=== PATIENT | male | born 1955 | race Two or more races ===

== ENCOUNTER 2018-08-09 12:04 | Emergency (ER) | payer MEDICARE, MEDICAID ==
--- NOTE | 2018-08-09 12:28 | ED ---
Dizziness - HPI Summary HPI Summary: This pt is a 62 y/o male presenting to [facility] c/o dizziness since last night. Pt describes room spinning dizziness. He states this morning upon getting up he had dizziness and fell like falling down. Denies fall, syncope, or LOC. His dizziness is aggravated when standing up. Denies numbness, tingling, weakness, nausea, vomiting, chest pain. Pt denies recent cold symptoms, runny nose, cough , ear pain, sinus pain. Pt denies any hx of dizziness in the past. PMHx includes bariatric surgery, HTN. Denies tobacco use. - History Of Current Complaint Stated Complaint: DIZZINESS Time Seen by Provider: 08/09/18 12:14 Hx Obtained From: Patient Onset/Duration: Still Present Timing: Days - 1 Severity Currently: Moderate Character: Room Spinning, Dizzy Aggravating Factor(s): Exertion Alleviating Factor(s): Nothing Associated Signs And Symptoms: Negative: Nausea, Vomiting, Tinnitus, Chest Pain , SOB, Fever, Chills, Slurred Speech, Other: - weakness, tingling, numbness, recent cold symptoms, ear pain, sinus pain - Allergies/Home Medications Allergies/Adverse Reactions: Allergies Allergy/AdvReac Type Severity Reaction Status Date / Time No Known Allergies Allergy Verified 01/01/16 11:54 PMH/Surg Hx/FS Hx/Imm Hx Endocrine/Hematology History: Reports: Hx Diabetes Cardiovascular History: Reports: Hx Hypertension Respiratory History: Reports: Hx Sleep Apnea - current BiPAP user Sensory History: Reports: Hx Contacts or Glasses, Hx Hearing Aid Opthamlomology History: Reports: Hx Contacts or Glasses Neurological History: Reports: Hx Seizures - epilepsy - Surgical History Surgery Procedure, Year, and Place: Bariatric Surgery February 2013 at [facility] Infectious Disease History: No Infectious Disease History: Denies: Traveled Outside the in Last 30 Days - Family History Known Family History: Negative: Hypertension, Diabetes Family History: AAA - Social History Alcohol Use: Rare Substance Use Type: Reports: None Smoking Status (MU): Never Smoked Tobacco Review of Systems Negative: Fever, Chills Negative: Ear Ache, Nasal Discharge, Other - sinus pain, Negative: Shortness Of Breath, Cough Negative: Vomiting, Nausea Neurological: Other - POS: dizziness Negative: Weakness, Paresthesia, Numbness All Other Systems Reviewed And Are Negative: Yes Physical Exam - Summary Physical Exam Summary: VITAL SIGNS: Reviewed. GENERAL: Patient is a well-developed and nourished male who is lying comfortable in the stretcher. Patient is not in any acute respiratory distress. HEAD AND FACE: No signs of trauma. No ecchymosis, hematomas or skull depressions. No sinus tenderness. EYES: PERRLA, EOMI x 2, No injected conjunctiva, no nystagmus. EARS: Hearing grossly intact. Ear canals and tympanic membranes are within normal limits. MOUTH: Oropharynx within normal limits. NECK: Supple, trachea is midline, no adenopathy, no JVD, no carotid bruit, no c- spine tenderness, neck with full ROM. CHEST: Symmetric, no tenderness at palpation LUNGS: Clear to auscultation bilaterally. No wheezing or crackles. CVS: Regular rate and rhythm, S1 and S2 present, no murmurs or gallops appreciated. ABDOMEN: Soft, non-tender. No signs of distention. No rebound, no guarding, and no masses palpated. Bowel sounds are normal. EXTREMITIES: FROM in all major joints, no edema, no cyanosis or clubbing. NEURO: Alert and oriented x 3. No acute neurological deficits. Speech is normal and follows commands. SKIN: Dry and warm GCS: 15 Triage Information Reviewed: Yes Vital Signs On Initial Exam: Initial Vitals Temp Pulse Resp BP Pulse Ox 98.8 F 68 19 137/75 98 08/09/18 12:19 08/09/18 12:19 08/09/18 12:19 08/09/18 12:19 08/09/18 12:19 Vital Signs Reviewed: Yes Diagnostics - Vital Signs Vital Signs Temp Pulse Resp BP Pulse Ox 08/09/18 12:19 98.8 F 68 19 137/75 98 - Laboratory Result Diagrams: 08/09/18 12:21 08/09/18 12:21 Lab Statement: Any lab studies that have been ordered have been reviewed, and results considered in the medical decision making process. - Radiology Chest XR Xray Interpretation: No Acute Changes - IMPRESSION: Elevated lung volumes suggest potential obstructive lung disease. No acute cardiopulmonary process evident. Dr. Ramirez has reviewed this report. Radiology Interpretation Completed By: Radiologist - CT Brain CT CT Interpretation: No Acute Changes - IMPRESSION: Mild cerebral and moderate cerebellar involutional change similar to the prior exam. No acute intracranial process evident. Dr. Ramirez has reviewed this report. CT Interpretation Completed By: Radiologist - EKG 12:26 Cardiac Rate: Bradycardia - at 58 bpm EKG Rhythm: Sinus Bradycardia EKG Interpretation: No ST elevations. EKG Comparison: Other - better compared to prior on 05/04/13. National Institutes Of Health - NIH Scale Level of Consciousness: Alert/Keenly Responsive Ask Patient the Month and His/Her Age: Both Correct Ask Pt to Open/Close Eyes and Instructional Systems Design Consultant/Release Non-Paretic Hand: Both Correctly Best Gaze (Only Horizontal Eye Movement): Normal Visual Field Testing: No Visual Loss Facial Paresis-Pt to Smile & Close Eyes or Grimace Symmetry: Normal/Symmetrical Motor Function - Right Arm: No Drift-Holds 10 Seconds Motor Function - Left Arm: No Drift-Holds 10 Seconds Motor Function - Right Leg: No Drift-Holds 10 Seconds Motor Function - Left Leg: No Drift-Holds 10 Seconds Limb Ataxia-Must be out of Proportion to Weakness Present: Absent Sensory (Use Pinprick to Test Arms/Legs/Trunk/Face): Normal Best Language (Describe Picture, Name Items): No Aphasia Dysarthria (Read Several Words): Normal Extinction and Inattention: No Abnormality Total Score: 0 Dizzy Course/Dx - Course Assessment/Plan: This pt is a 62 y/o male presenting to [facility] c/o dizziness since last night. Pt describes room spinning dizziness. He states this morning upon getting up he had dizziness and fell like falling down. Denies fall, syncope, or LOC. His dizziness is aggravated when standing up. Denies numbness, tingling, weakness, nausea, vomiting, chest pain. Pt denies recent cold symptoms , runny nose, cough, ear pain, sinus pain. Pt denies any hx of dizziness in the past. PMHx includes bariatric surgery, HTN. Denies tobacco use. Blood work without any significant abnormality except for glucose of 112, lactic acid is 2.8, troponin is 0.00. Urinalysis is negative for UTI. Head CT impression: No acute intracranial pathology. Chest x-ray impression: No acute cardiopulmonary process evident. In the ED course the patient declined IV fluid but he took meclizine for the dizziness. After this medication was given the symptoms have improved. At this point the patient is asymptomatic. The patient is ambulating without an unsteady gait or ataxia. I discussed all the findings and test results with the patient. Patient was instructed to return to the emergency room immediately if any of the symptoms return or worsens. Plan of care was discussed with the patient, and he understands and agrees. All questions were answered at patient satisfaction. There were no further complaints or concerns. Lung exam before discharge: CTA B/L. Good air exchange. No wheezing or crackles heard. CVS: S1 and S2 present. No murmurs appreciated. Patient is alert and oriented x 3. Patient is hemodynamically stable. Patient will be discharged home with follow up PCP in the next 2-3 days. - Diagnoses Differential Diagnosis/HQI/PQRI: Benign Paroxysmal Positional Vertigo, CVA, Medication Reaction, Transient Ischemic Attack, Vasovagal Reaction Provider Diagnoses: Vertigo Discharge - Sign-Out/Discharge Documenting (check all that apply): Patient Departure - Discharge home - Discharge Plan Condition: Stable Disposition: HOME Prescriptions: Meclizine TAB* [Antivert 12.5 TAB*] 25 mg PO TID PRN #30 tab PRN Reason: Vertigo Patient Education Materials: Vertigo (ED) Referrals: Allan Melendez MD [Primary Care Provider] - Additional Instructions: FOLLOW UP WITH YOUR PRIMARY CARE PROVIDER WITHIN ONE WEEK FOR HIGH BLOOD PRESSURE NOTED TODAY. RETURN TO THE ED FOR ANY NEW OR WORSENING SYMPTOMS. - Attestation Statements Document Initiated by Scribe: Yes Documenting Scribe: Diana Carroll Provider For Whom Scribe is Documenting (Include Credential): Kye Ramirez MD Scribe Attestation: Diana Robert, scribed for Kye Ramirez MD on 08/09/18 at 1801.
[2018-08-09 12:36] LABS: ABS Basophils 0 10^3/ul (0-0.2); ABS Eosinophils 0 10^3/ul (0-0.6); ABS Lymphocytes 1.3 10^3/ul (1.0-4.8); ABS Monocytes 0.7 10^3/ul (0-0.8); ABS Nucleated RBC 0 10^3/ul; Eosinophil % 0.8 % (0-6); Hematocrit 47 % (42-52); Hemoglobin 15.8 g/dl (14.0-18.0); Lymphocyte % 21.4 % (25-47); Mean Corpuscular HGB Conc 34 g/dl (31-36); Mean Corpuscular Hemoglobin 31 pg (27-31); Mean Corpuscular Volume 92 fL (80-94); Mean Platelet Volume 8.3 um3 (7.4-10.4); Nucleated Red Blood Cells % 0.1; Platelet Count 148 10^3/ul (150-450); Red Blood Count 5.08 10^6/ul (4.00-5.40); Red Cell Distribution Width 13 % (10.5-15); White Blood Count 6.2 10^3/ul (3.5-10.8)
--- OUTSIDE RECORDS SUMMARY | 2018-08-09 12:40 | XMS REPORT | Continuity of Care Document ---
:1955 External Reference #:[id number] Author Name Angel Garcia, OD Address [address] [place] [address] Care Team Providers Name Role Phone Nora DUFF, Allan Zelaya Care Team Information Professional Sports Scout Unavailable Nora DUFF, Allan Zelaya Primary Care Physician Unavailable Payers Type Date Identification Numbers Payment Provider Subscriber Policy Number: [id number] Medicare [facility] Robb Bashir PayID: [id number] [address] [place] [address] Policy Number: [id number] [place] Robb Bashir PayID: [id number] [address] [place] [address] Advance Directives Description No Information Available Problems Description No Information Family History Date Family Member(s) Problem(s) Comments Father Unknown Mother due to Aneurysm () - At [facility] Social History Type Date Description Comments Sex Unknown ETOH Use Occasionally consumes alcohol Tobacco Use Start: Unknown Patient has never smoked Smoking Status Reviewed: 08/03/18 Patient has never smoked Allergies, Adverse Reactions, Alerts Description No Known Drug Allergies Medications Medication Date Status Form Strength Qnty SIG Indications Ordering Provider Latanoprost Active Solution 0.005% 2.500m 1 drops Angel 018 l both eyes Garcia, OD every night Ocusoft Lid Active Pads 30unit apply to Angel Scrub Plus 017 s outer Garcia, OD eyelids Qam OU Tranxene-T Active Tablets 7.5mg Unknown [address] 500mg Unknown 000 Flintstones Active Chewtabs 60mg Unknown Complete 000 Vitamin B12 Active Tablets Unknown 000 Potassium Active Tablets Unknown 000 Calcium + D Active Chewtabs Unknown [address] 20mg Unknown 000 Gas-X Active Chewtabs 80mg Unknown 000 Latanoprost Hx Solution 0.005% 7.5ml 1 drops Angel Torrez - both eyes Jose, OD every 018 night Immunizations Description No Information Available Vital Signs Date Vital Result Comment 02/23/2018 1:20pm Intraocular Pressure Right Eye 12 mmHg Intraocular Pressure Left Eye 12 mmHg 10/20/2017 3:06pm Intraocular Pressure Right Eye 14 mmHg Intraocular Pressure Left Eye 14 mmHg 06/20/2017 2:34pm Intraocular Pressure Right Eye 14 mmHg Intraocular Pressure Left Eye 12 mmHg 04/11/2017 11:18am Intraocular Pressure Right Eye 14 mmHg Intraocular Pressure Left Eye 14 mmHg 02/09/2017 1:14pm Intraocular Pressure Right Eye 15 mmHg Intraocular Pressure Left Eye 15 mmHg 12/29/2016 1:49pm Intraocular Pressure Right Eye 21 mmHg Intraocular Pressure Left Eye 19 mmHg 11/21/2016 11:34am Intraocular Pressure Right Eye 22 mmHg Intraocular Pressure Left Eye 21 mmHg 09/19/2016 11:33am Intraocular Pressure Right Eye 19 mmHg Intraocular Pressure Left Eye 19 mmHg Results Description No Information Available Procedures Date Code Description Status 02/23/2018 78849 Visual Field Exam Extended, Unilateral Or Bilateral Completed 02/23/2018 82779 Eye Exam Est Intermediate Completed 10/20/2017 76377 Fundus Photography W/Interpretation & Report Completed 10/20/2017 91121 Eye Exam Est Intermediate Completed 04/11/2017 65083 Eye Exam Est Intermediate Completed 02/09/2017 62059 Eye Exam Est Intermediate Completed 12/29/2016 58115 Visual Field Exam Extended, Unilateral Or Bilateral Completed 12/29/2016 33653 Eye Exam Est Intermediate Completed 11/21/2016 16777 Oct, Optic Nerve Completed 11/21/2016 50765 Eye Exam Est Intermediate Completed 09/19/2016 81363 Fundus Photography W/Interpretation & Report Completed 09/19/2016 63086 Ophthalmoscopy Initial Completed 09/19/2016 24494 Refraction Completed 09/19/2016 59940 Eye Exam New Comprehensive Completed Encounters Type Date Location Provider Dx Diagnosis Office Visit 06/20/2017 Main Office Angel Garcia, OD H40.1131 Primary open-angle 2:15p glaucoma, bilateral, mild stage Plan of Treatment 08/03/2018 - Angel Garcia, [id number] Primary open-angle glaucoma, bilateral, mild stageFollow up:4 mos full, sooner PRN
[2018-08-09 12:59] LABS: EGFR Non-African American 104.6 (>60)
--- NOTE | 2018-08-09 12:59 | RAD ---
INDICATION: Dizziness. Hypertension. COMPARISON: February 27, 2015 TECHNIQUE: Dual energy PA and routine lateral views of the chest were obtained. REPORT: Elevated lung volumes. Clear lungs and pleural spaces. Negative for pneumothorax. The heart, pulmonary vasculature, and mediastinal contours are unremarkable. Unremarkable osseous structures and soft tissue contours. IMPRESSION: #. Elevated lung volumes suggest potential obstructive lung disease. #. No acute cardiopulmonary process evident.
--- NOTE | 2018-08-09 13:03 | RAD ---
Indication: Dizziness. Comparison: September 13, 2011 Technique: Noncontrast CT vertex of skull through foramen magnum. Report: Mild prominence of the cerebral sulci and moderate prominence of the cerebellar fissures reflecting involutional change. Unremarkable ventricles and patent basal cisterns. Negative for berger matter white matter obscuration, intra or extra-axial hemorrhage, or mass effect. Unremarkable orbital contents as well as the calvarium and skull base. Clear visualized paranasal sinuses and mastoid air spaces. Unremarkable scalp. IMPRESSION: #. Mild cerebral and moderate cerebellar involutional change similar to the prior exam. #. No acute intracranial process evident.
[2018-08-09 13:25] LABS: Urine Appearance Clear; Urine Blood Negative (Negative); Urine Color Yellow; Urine Ketones Negative (Negative); Urine Protein Negative (Negative); Urine Specific Gravity 1.004 (1.010-1.030); Urine Urobilinogen Negative (Negative)
[2018-08-09] MEDS ORDERED: NS 0.9% 1000 ML* 1,000 ML IV ONE (13:50)
[2018-08-09] MEDS ORDERED: Meclizine TAB* 12.5 MG PO ONE (13:53)
[2018-08-09 14:37] VITALS: BP 125/73
== END 2018-08-09 14:36 | disposition home or self-care (01) ==
LOC: ED 12:04
DX: R42 Dizziness and giddiness (principal); I10 Essential (primary) hypertension; E11.9 Type 2 diabetes mellitus without complications; G47.30 Sleep apnea, unspecified; Z79.899 Other long term (current) drug therapy; R00.1 Bradycardia, unspecified
CPT/HCPCS: 36415; 70450; 71046; 80053; 80320; 81003; 82550; 83605; 83735; 83880; 84443; 84484; 85025; 86140; 93005; 99283; A9270-GY; G0480

== ENCOUNTER 2019-11-24 02:15 | Emergency (ER) | payer MEDICARE, MEDICAID ==
[2019-11-24] MEDS ORDERED: Ondansetron INJ* 2 MG/ML VIAL IV ONE ×2 (02:57→02:58)
[2019-11-24] MEDS ORDERED: NS 0.9% 1000 ML** 1,000 ML IV ONE (02:57)
--- NOTE | 2019-11-24 02:58 | ED ---
Influenza-Like Illness - HPI Summary HPI Summary: Patient is a 63 y/o M presenting to [facility] via EMS for fever, cough, fatigue, sore throat, nasal congestion, LITTLE, and chest pain. He states that Sx onset . Patient was evaluated at [facility] on 11/22/19, flu swab was obtained and patient was diagnosed with influenza. However, he claims that the provider was unable to tell him which strain he had. He also claims that he was instructed to come to ED if he felt his Sx worsened. He states that his Sx worsened this evening, which resulted in this visit. He denies N/V/D. No other sick contacts noted. Patient states that he has been taking a mixture of lemon juice, virgin olive oil, and honey for his sore throat. He has been taking ibuprofen for LITTLE with minimal relief in Sx. Patient was able to eat dinner and has been drinking Powerade. PMHx of epilepsy and sleep apnea. PSHx of mickie-en-y gastric bypass noted. FMHx of bipolar disorder in mother. He reports rare alcohol usage but denies tobacco and substance usage. Home medications and allergies are reviewed. - History of Current Complaint Chief Complaint: EDFluSymptoms Time Seen by Provider: 11/24/19 02:40 Hx Obtained From: Patient Onset/Duration: Lasting Days, Still Present Severity: Severe Associated Signs & Symptoms: Cough, Sore Throat, Nasal Congestion, Headache - Allergy/Home Medications Allergies/Adverse Reactions: Allergies Allergy/AdvReac Type Severity Reaction Status Date / Time No Known Allergies Allergy Verified 01/01/16 11:54 PMH/Surg Hx/FS Hx/Imm Hx Endocrine/Hematology History: Reports: Hx Diabetes Cardiovascular History: Reports: Hx Hypertension Respiratory History: Reports: Hx Sleep Apnea - current BiPAP user Sensory History: Reports: Hx Contacts or Glasses, Hx Hearing Aid Opthamlomology History: Reports: Hx Contacts or Glasses Neurological History: Reports: Hx Seizures - epilepsy - Surgical History Surgery Procedure, Year, and Place: Bariatric Surgery February 2013 at [facility] Infectious Disease History: No Infectious Disease History: Denies: Traveled Outside the [place] in Last 30 Days - Family History Known Family History: Positive: Other - bipolar disorder, mother Negative: Cardiac Disease, Hypertension, Diabetes Family History: AAA - Social History Alcohol Use: Rare Substance Use Type: Reports: None Smoking Status (MU): Never Smoked Tobacco - Additional Comments History Additional Comments: PMHx of epilepsy and sleep apnea PSHx of mickie-en-y gastric bypass FMHx of bipolar disorder Review of Systems - ROS Summary Review of Systems Summary: Home Medications Medication Instructions Recorded Confirmed Type Cholecalciferol (Vitamin D3) 400 unit PO Q7D 06/25/13 11/14/14 History [Vitamin D3] Clorazepate Dipotassium [Tranxene 0.5 tab PO BID 06/25/13 11/14/14 History T] Cyanocobalamin (Vitamin B-12) 1,000 mcg PO QAM 06/25/13 11/14/14 History [Vitamin B-12] Omeprazole 20 mg PO BEDTIME 06/25/13 11/14/14 History Pedi Multivit No.25/Folic Acid 1 chw PO DAILY 06/25/13 11/14/14 History [Flintstones Multivit Chew Tab] Simvastatin 40 mg PO BEDTIME 06/25/13 11/14/14 History Tamsulosin HCl 2 cap PO QAM 06/25/13 11/14/14 History Valproic Acid (As Sodium Salt) 250 mg PO BID 06/25/13 11/14/14 History [Depakene] Calcium Citrate-Vitamin D [Calcium 1 tab PO QID 09/24/13 11/14/14 History Citrate + D3 250-200 mg-Unit] Potassium Chloride [Klor-Con 10] 10 meq PO QAM 09/24/13 11/14/14 History Meclizine TAB* [Antivert 12.5 TAB*] 25 mg PO TID PRN #30 tab 08/09/18 Rx Positive: Fever, Fatigue Positive: Sore Throat, Nasal Discharge Positive: Chest Pain Positive: Cough Negative: Vomiting, Diarrhea, Nausea Positive: Headache All Other Systems Reviewed And Are Negative: Yes Physical Exam - Summary Physical Exam Summary: General: Well-developed, Well-nourished, Elderly male that is mildly ill- appearing. No acute distress. HEENT: Normocephalic, Atraumatic. Eyes: Conjuctiva normal, PERRL. Oropharynx: Clear, mucous membranes moist, (-) exudates. Neck: Soft, FROM, (-) lymphadenopathy, (-) thyromegaly, (-) JVD. Cardiovascular: Normal sinus rhythm, (-) murmur. Lungs: Clear to auscultation bilaterally (-) wheezes, (-) rales, (-) rhonchi. Abdomen: Soft, non-tender, non-distended, (-) organomegaly, normal bowel sounds. Back: (-) CVA tenderness Extremities: No edema. Skin: Warm, dry, (-) rash. Neuro: Alert and oriented x3, no focal deficits. Psychiatric: Odd affect noted. Triage Information Reviewed: Yes Vital Signs On Initial Exam: Initial Vitals Temp Pulse Resp BP Pulse Ox 100.3 F 105 20 160/86 97 11/24/19 02:22 11/24/19 02:22 11/24/19 02:22 11/24/19 02:22 11/24/19 02:22 Vital Signs Reviewed: Yes Procedures - Sedation Patient Received Moderate/Deep Sedation with Procedure: No Diagnostics - Vital Signs Vital Signs Temp Pulse Resp BP Pulse Ox 11/24/19 02:22 100.3 F 105 20 160/86 97 - Laboratory Result Diagrams: 11/24/19 03:13 11/24/19 03:13 Lab Statement: Any lab studies that have been ordered have been reviewed, and results considered in the medical decision making process. - Radiology CXR Radiology Interpretation Completed By: ED Physician Summary of Radiographic Findings: CXR shows no infiltrate, no pleural effusion, pending official report. Flu Symptom Course/Dx - Course Course Of Treatment: 63 year old male presents iwth two day history of flu-like symptoms. was seen at pcp and told he had the flu but wasn't started on any medicine. patient felt worse throught the evening so he presented by ambulance. fever, cough, sob, severe muscle aching. physical exam demonstrated mildly ill- appearing male. nonspecific otherwise. cxr negative., labs show negative for flu. no elevated wbc or lactic acid. patient received fluids and Toradol. discharged to home. plenty of fluids, ibuprofen and rest. Follow up with PCP, follow up [place] for any worsening symptoms. - Diagnoses Provider Diagnoses: Flu-like symptoms Discharge ED - Sign-Out/Discharge Documenting (check all that apply): Patient Departure - discharge - Discharge Plan Condition: Stable Disposition: HOME Patient Education Materials: Viral Syndrome (ED) Referrals: Allan Melendez MD [Primary Care Provider] - 3 Days Additional Instructions: PLEASE RETURN TO ED FOR ANY NEW OR WORSENING SYMPTOMS. PLEASE FOLLOW UP WITH YOUR PRIMARY CARE PHYSICIAN WITHIN THREE DAYS. - Billing Disposition and Condition Condition: STABLE Disposition: Home - Attestation Statements Document Initiated by Wilber: Yes Documenting Scribe: DORITA LEI Provider For Whom Wilber is Documenting (Include Credential): NATALIYA HOBBS MD Scribe Attestation: I, DORITA LEI, scribed for NATALIYA HOBBS MD on 11/24/19 at 0557. Scribe Documentation Reviewed: Yes Provider Attestation: The documentation as recorded by the DORITA henry accurately reflects the service I personally performed and the decisions made by me, NATALIYA HOBBS MD Status of Scribe Document: Viewed
[2019-11-24 03:18] LABS: ABS Eosinophils 0.1 10^3/ul (0-0.6); ABS Lymphocytes 0.9 10^3/ul (1.0-4.8); ABS Neutrophils 4.8 10^3/ul (1.5-7.7); Eosinophil % 1.3 %; Hematocrit 46 % (42-52); Hemoglobin 15.9 g/dL (14.0-18.0); Mean Corpuscular HGB Conc 34 g/dL (31-36); Mean Corpuscular Hemoglobin 32 pg (27-31); Mean Corpuscular Volume 92 fL (80-94); Mean Platelet Volume 7.7 fL (7.4-10.4); Nucleated Red Blood Cells % 0.1; Platelet Count 107 10^3/uL (150-450); Red Blood Count 5.02 10^6 /uL (4.18-5.48); Red Cell Distribution Width 14 % (10-15); White Blood Count 6.8 10^3/uL (3.5-10.8)
--- OUTSIDE RECORDS SUMMARY | 2019-11-24 03:32 | XMS REPORT | Continuity of Care Document ---
:1955 External Reference #:[id number] Author Name JANNA Tobias Address [address] [place] [address] Care Team Providers Name Role Phone Vinita Douglas - Wool Spotter Care Team Information [facility]Center Care Team Information H[facility] Community Liaison Glen Ríos MD - Cardiovascular Care Team Information Hosp[facility] Community Liaison [facility] - Care Team Information Hospice Community Liaison [phone] Wool Spotter Problems Active Problems Provider Date Low back pain Allan Melendez M.D. Onset: 03/07/2007 Seizure Allan Melendez M.D. Onset: 03/07/2007 Backache Allan Melendez M.D. Onset: 03/07/2007 Essential hypertension Allan Melendez M.D. Onset: 05/30/2007 Benign essential hypertension Allan Melendez M.D. Onset: 09/19/2007 Benign prostatic hypertrophy without Allan Melendez M.D. Onset: 12/24/2007 outflow obstruction Peripheral venous insufficiency Allan Melendez M.D. Onset: 08/13/2008 Sleep apnea Allan Melendez M.D. Onset: 01/30/2009 Edema Allan Melendez M.D. Onset: 02/13/2009 Anxiety state Allan Melendez M.D. Onset: 05/01/2009 Hyperlipidemia Allan Melendez M.D. Onset: 10/26/2009 Type 2 diabetes mellitus Allan Melendez M.D. Onset: 10/26/2009 Obesity Allan Melendez M.D. Onset: 06/08/2010 Vitamin D deficiency Allan Melendez M.D. Onset: 01/31/2011 Hallucinations Maxx Osborne M.D. Onset: 09/02/2011 Headache Allan Melendez M.D. Onset: 09/09/2011 Acute sinusitis Allan Melendez M.D. Onset: 09/09/2011 Arthralgia of the ankle and/or foot Allan Melendez M.D. Onset: 11/11/2011 Obstructive sleep apnea syndrome Allan Melendez M.D. Onset: 11/11/2011 Generalized abdominal pain Allan Melendez M.D. Onset: 02/20/2012 Adult health examination Allan Melendez M.D. Onset: 03/30/2012 Postsurgical Status Other Allan Melendez M.D. Onset: 04/23/2013 Malaise and fatigue Allan Melendez M.D. Onset: 09/10/2013 Neck pain Allan Melendez M.D. Onset: 03/27/2015 Thoracic back sprain Allan Melendez M.D. Onset: 03/27/2015 Neuralgia Allan Melendez M.D. Onset: 03/27/2015 Fecal Urgency Allan Melendez M.D. Onset: 05/19/2015 Generalized anxiety disorder Allan Melendez M.D. 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 Onset: 10/05/2015 Elongated styloid process syndrome Allan Melendez M.D. Onset: 01/12/2016 Liver function tests abnormal Allan Melendez M.D. Onset: 02/08/2016 Tinnitus of left ear Allan Melendez M.D. Onset: 12/09/2016 Impacted cerumen Allan Melendez M.D. Onset: 12/09/2016 Bronchitis Allan Melendez M.D. Onset: 01/06/2017 Contusion of face, scalp and neck, Allan Melendez M.D. Onset: 04/24/2017 excluding eye(s) Dizziness and giddiness Allan Melendez M.D. Onset: 04/24/2017 Abnormal glucose level Allan Melendez M.D. Onset: 04/24/2017 Glaucoma Allan Melendez M.D. Onset: 06/05/2018 Pain in left knee Allan Melendez M.D. Onset: 08/13/2019 Urgent desire for stool Dolores Edmonds NP Onset: 11/18/2019 Social History Type Date Description Comments Sex Unknown Tobacco Use Start: Unknown Nonsmoker Smoking Status Reviewed: 11/18/19 Nonsmoker ETOH Use Some Tobacco Use Start: Unknown Patient has never smoked Allergies, Adverse Reactions, Alerts Description No Known Drug Allergies Medications Active Medications SIG Qnty Indications Ordering Provider Date Potassium Chloride Take 1 Tablet By 90tabs Allan Melendez, 08/28/2019 ER Mouth Daily M.D. 10Meq Tablets ER Divalproex Sodium ER take 2 tablets by 120tabs G40.319 Allan Melendez, 12/2018 mouth twice a day M.D. 500mg Tablets ER 24HR Latanoprost instill 1 drop in Unknown 02/06/2017 0.005% each eye at Solution bedtime Clorazepate 1/2 tab by mouth 30tabs F41.1 Allan Melendez, 10/19/2015 Dipotassium twice a day M.D. 7.5mg Tablets Tamsulosin HCL take 1 capsules 180caps N40.0 Allan Melendez, 09/05/2011 0.4mg by mouth every M.D. Capsules day Flintstones 2 qam Unknown Chewtabs Calcium take one tablet Unknown 500mg Tablets by mouth every day (supplement) History Medications Vitamin D Take One Capsule 8caps Allan Zelaya 09/12/2019 - (Ergocalciferol) By Mouth One Time Yoana Melendez 10/02/2019 1.25mg Per week (25614 Ut) Capsules Cpap Supplies mask, tubing, 1units Allan Zelaya 09/03/2019 - associated Yoana Melendez 11/23/2019 supplies needed for use with cpap machine dx: g47.33 duration: lifetime Physical Therapy treatment and M25.562 Allan Zelaya 08/13/2019 - evaluation left Yoana Melendez 10/27/2019 knee pain Immunizations CPT Code Status Date Vaccine Reaction Lot # [id number] Given 08/13/2019 Influenza Vac, Quadrivalent, [id number] [address] Given 02/09/2019 Zoster (Shingles) Vaccine (HZV), Recombinant, Subunit, Adjuvanted 09467 Given 06/01/2018 Zoster (Shingles) Vaccine (HZV), Recombinant, Subunit, Adjuvanted 17895 Given 08/29/2017 Influenza Vac, Quadrivalent, [id number] [address] Given 09/17/2016 Influenza Vac, Quadrivalent, [id number] [address] Given 07/16/2015 Influenza vac quadrivalent preservative free 6 months and up 90777 Given 09/26/2014 Influenza Vac, Quadrivalent, [id number] Slit Virus, Im Q2038 Given 08/06/2013 Split Influenza Medicare: [id number] Fluzone 85796 Given 07/23/2012 DO Not Use Split Influenza Virus Vaccine 27135 Given 03/30/2012 Tdap Tetanus, W Pertussis [id number] Q2038 Given 08/08/2011 Split Influenza Medicare: Fluzone 30298 Given 08/08/2011 DO Not Use Split Influenza no reaction noted [id number] Virus Vaccine 83222 Given 07/30/2010 DO Not Use Split Influenza [id number] Virus Vaccine 66164 Given 08/13/2008 Pneumococcal Immunization [id number] 33174 Given 08/13/2008 DO Not Use Split Influenza [id number] Virus Vaccine 44492 Given 08/30/2007 DO Not Use Split Influenza Virus Vaccine 59704 Given 09/02/2005 DO Not Use Split Influenza Virus Vaccine Vital Signs Date Vital Result Comment 11/23/2019 10:33am BP Systolic 130 mmHg BP Diastolic 80 mmHg Heart Rate 72 /min Body Temperature 98.2 F Respiratory Rate 18 /min Weight 219.00 lb 11/18/2019 2:49pm BP Systolic 112 mmHg BP Diastolic 72 mmHg Heart Rate 64 /min Body Temperature 97.0 F Respiratory Rate 16 /min Weight 224.00 lb shoes and coat on Results Test Acquired Date Facility Test Result H/L Range Note Flu A&B (a) 11/23/2019 [facility] Influenza A neg (607)- - Influenza B neg Comprehensive Metabolic 10/28/2019 [facility]) Sodium 139 mEq/L 134-149 Prof Potassium 4.1 mEq/L 3.6-5.5 Chloride 103 mEq/L 94-112 Carbon Dioxide 29 mEq/L 21-32 Glucose 113 mg/dL High 70-105 BUN 19 mg/dL 6-26 Creatinine 0.9 mg/dL 0.6-1.4 BUN/Creat Ratio 21.1 CALC 8.0-36.0 Calcium 9.9 mg/dL 8.6-10.2 Total Protein 7.0 g/dL 6.4-8.3 Albumin 4.5 g/dL 3.8-5.5 Globulin 2.5 g/dL 2.0-4.8 A/G Ratio 1.8 CALC 0.6-2.3 Alk. Phosphatase 45 U/L 22-95 Alt (SGPT) 32 U/L 7-35 Ast (Sgot) 23 U/L 5-34 Total Bilirubin 0.7 mg/dL 0.2-1.3 GFR Non- >60 ml/min/1.73m^ >=60 GFR >60 ml/min/1.73m^ >=60 Ua - Non Micro (a) 10/28/2019 [facility] Appearance Slightly Cloudy (607)- - Color Yellow Glucose, Urine (Fma/CMC/CTX) Negative Bilirubin Negative Ketones 15 SP Grav 1.025 Blood Negative PH 6.0 Protein Negative Urobil 2.0 Nitrite Negative Leukocytes (a/CMC/Centrex) Negative Laboratory test finding 06/17/2019 [facility]) PSA 0.8 ng/mL 0.0 -4.0 Comprehensive Metabolic 06/17/2019 [facility]) Sodium 141 mEq/L 134-149 Prof Potassium 4.3 mEq/L 3.6-5.5 Chloride 102 mEq/L 94-112 Carbon Dioxide 27 mEq/L 21-32 Glucose 97 mg/dL 70-105 BUN 16 mg/dL 6-26 Creatinine 0.8 mg/dL 0.6-1.4 BUN/Creat Ratio 20.0 CALC 8.0-36.0 Calcium 9.2 mg/dL 8.6-10.2 Total Protein 6.8 g/dL 6.4-8.3 Albumin 4.5 g/dL 3.8-5.5 Globulin 2.3 g/dL 2.0-4.8 A/G Ratio 2.0 CALC 0.6-2.3 Alk. Phosphatase 41 U/L 22-95 Alt (SGPT) 25 U/L 7-35 Ast (Sgot) 19 U/L 5-34 Total Bilirubin 0.7 mg/dL 0.2-1.3 GFR Non- >60 ml/min/1.73m^ >=60 GFR >60 ml/min/1.73m^ >=60 Lipid Profile 06/17/2019 [facility]) Cholesterol 187 mg/dL 120- 200 Triglycerides 236 mg/dL High 30-200 HDL Cholesterol 38 mg/dL 30-70 LDL (Calculated) 102 CALC 0-129 VLDL Cholesterol 47 mg/dL 0-50 HDL Risk Factor 4.9 CALC High 0.0-4.4 Laboratory test 06/17/2019 [facility] Valproic Acid 50 ug/mL 50-100 1, 2 finding 14[address] [facility] (Depakote)(R),[place] [address] (607)- - Laboratory test 06/17/2019 [facility] Hemoglobin A1c 5.2 % % 4.1- 5.7 finding (607)- - (a) CBC Electronic 06/17/2019 [facility] WBC 5.41 4.0-10.0 (a New) (607)- - RBC 4.91 3.93-6.0 Hemoglobin (Fma/CMC/CTX) 15.1 g/dL 12.0-17.0 Hematocrit (Fma/CMC/CTX) 45.4 % 35.0-50.0 Mean Corpuscular Vol 92.5 fL 80-95 Mean Corpuscular Hemoglobin 30.8 pg 25.6-32.2 Mean Corpuscular Hemo Concen 33.3 g/dL 32.2-36.0 Platelets 159 10^3/ul Low 163-400 RDW-CV 12.6 11.6-14.4 Mean Platelet Volume 9.8 fL 8.0-12.4 Absolute Neutrophils BLD 2.96 1.56-6.13 Absolute Lymphocytes 1.69 1.18-3.74 Absolute Monocytes BLD Auto 0.62 0.24-0.82 Absolute Eos Blood 0.09 0.04-0.54 Absolute Basophils 0.02 0.01-0.08 Neutrophil % 54.6 % 34.0-70.0 Lymph% 31.2 % 20.0-52.0 Monocytes % 11.5 % 5.0-12.0 Eos % 1.7 % 0.7-7.0 Basophil% 0.4 % 0-1.2 1 serum from [facility] 2 Detection Limit = 4 <4 indicates None Detected Toxicity may occur at levels of 100-500. Measurements of free unbound valproic acid may improve the assess- ment of clinical response. Procedures Date Code Description Status 02/04/2017 226594701 Diabetic Retinal Eye Exam Completed 11/18/2014 47147207 Colonoscopy Completed Medical Devices Description No Information Available Encounters Type Date Location Provider Dx Diagnosis Office Visit 11/18/2019 3:00p Main Office Dolores Edmonds NP R15.2 Fecal urgency R19.7 Diarrhea, unspecified Office Visit 10/28/2019 10:30a Main Office Dolores Oakes N40.1 Benign prostatic LEONEL Edmonds hyperplasia with lower urinary tract symp R82.5 Elevated urine levels of drug/meds/biol subst Office Visit 08/13/2019 2:20p Main Office Allan Melendez, Z23 Encounter for M.D. immunization M25.562 Pain in left knee Assessments Date Code Description Provider 11/23/2019 R05 Cough Hiral Mejia [facility] 11/23/2019 R68.83 Chills (without fever) Hiral Mejia [facility] 11/23/2019 J06.9 Acute upper respiratory infection, Hiral Mejia [facility] unspecified 11/23/2019 Z98.84 Bariatric surgery status Hiral Mejia [facility] 11/18/2019 R15.2 Fecal urgency Dolores Edmonds NP 11/18/2019 R19.7 Diarrhea, unspecified Dolores Edmonds NP 10/28/2019 N40.1 Benign prostatic hyperplasia with lower Dolores Edmonds NP urinary tract symptoms 10/28/2019 R82.5 Elevated urine levels of drugs, medicaments Dolores Edmonds, LEONEL and biological substances 08/13/2019 Z23 Encounter for immunization Allan Melendez M.D. 08/13/2019 M25.562 Pain in left knee Allan Melendez M.D. 06/17/2019 Z00.00 Encounter for general adult medical Allan Melendez M.D. examination without abnormal findings 06/17/2019 G40.319 Generalized idiopathic epilepsy and Allan Melendez M.D. epileptic syndromes, intracta 06/17/2019 G47.33 Obstructive sleep apnea (adult) (pediatric) Allan Melendez M.D. 06/17/2019 N40.0 Benign prostatic hyperplasia without lower Allan Melendez M.D. urinary tract symptoms 06/17/2019 E11.9 Type 2 diabetes mellitus without Allan Melendez M.D. complications Plan of Treatment Future Appointment(s):12/23/2019 3:00 pm - Allan Melendez M.D. at Main [id number]/23/2019 - Hiral Mejia, [id number] CoughComments:flu negative push fluids, rest, hot steam showers, call SARAH if condition changes/worsens in any wayR68.83 Chills (without fever)J06.9 Acute upper respiratory infection, nyaynnqnaufS55.84 Bariatric surgery statusComments:broth is a good way for you to stay hydratedAllComments: As always, we strongly encourage a healthy diet and making physical activity a part of your every day life. If you have questions about how or where to start, please contact the office. Functional Status Description No Information Available Mental Status Description No Information Available Referrals Description No Information Available
--- OUTSIDE RECORDS SUMMARY | 2019-11-24 03:32 | XMS REPORT | Continuity of Care Document ---
:1955 External Reference #:[id number] Author Name Idania Stoner DNP, RN, BALANCE SHEET ANALYST-BC (transmitted by agent of provider Viriidana Phillips) Address [address], [address] [place] [address] Care Team Providers Name Role Phone Maxx Osborne MD - Family Medicine Care Team Information Licensed Prosthetist Allan Melendez MD - Family Medicine Care Team Information Licensed Prosthetist Problems Active Problems Provider Date Obstructive sleep apnea syndrome Idania Stoner DNP, RN, BALANCE SHEET ANALYST-BC Onset: Note: Severe NPSG AHI 57.3 Social History Type Date Description Comments Sex Unknown Tobacco Use Start: Unknown End: Former Cigarette Smoker Unknown Smoking Status Reviewed: 11/19/19 Former Cigarette Smoker ETOH Use Occasionally consumes alcohol Tobacco Use Start: Unknown End: Patient is a former smoker Unknown Recreational Drug Use Denies Drug Use Exercise Type/Frequency Walks daily Exercise Type/Frequency Exercises regularly Allergies, Adverse Reactions, Alerts Description No Known Drug Allergies Medications Active Medications SIG Qnty Indications Ordering Date Provider Tranxene-T 1/2 tab twice a Unknown 3.75mg Tablets day. Tamsulosin HCL 1 by mouth every 90caps Unknown 0.4mg day Capsules Klor-Con M10 1 by mouth every 30tabs Unknown 10Meq day Tablets ER Calcium 600 + D once a day Unknown [id number] Tablets Multivitamins 1 by mouth every 30units Unknown Chewtabs day Latanoprost Instill 1 Drop Unknown 0.005% Into Both Eyes Solution Every Night Immunizations Description No Information Available Vital Signs Date Vital Result Comment 11/19/2019 9:51am Height 71 inches 5'11" Weight 223.00 lb Heart Rate 67 /min BP Systolic Sitting 104 mmHg BP Diastolic Sitting 70 mmHg O2 % BldC Oximetry 97 % BMI (Body Mass Index) 31.1 kg/m2 01/25/2019 11:32am Height 71 inches 5'11" Weight 220.00 lb Heart Rate 60 /min BP Systolic Sitting 112 mmHg Lue Reg Cuff BP Diastolic Sitting 76 mmHg Lue Reg Cuff Respiratory Rate 16 /min O2 % BldC Oximetry 97 % on Ra BMI (Body Mass Index) 30.7 kg/m2 Results Description No Information Available Procedures Description No Information Available Medical Devices Description No Information Available Encounters Description No Information Available Assessments Date Code Description Provider 11/19/2019 G47.33 Obstructive sleep apnea (adult) Idania Stoner DNP, RN, JANNA-BC (pediatric) Plan of Treatment Future Appointment(s):01/21/2020 10:30 am - Idania Stoner DNP, RN, BALANCE SHEET ANALYST-BC at [facility]11/19/2019 - Idania Stoner DNP, RN, BALANCE SHEET ANALYST- BCG47.33 Obstructive sleep apnea (adult) (pediatric)Comments:Sleep Apnea - NPSG 11.2.17 Post weight loss. AHI 57.3/hour, rhett oxygen 75% wt 217 (Accidents /Injuries) On BiPAP IPAP max 14, EPAP min5, PS 4 AHI 1.1/hourFollow up:2 months (follow-up to machine replacement) if not replaced can extend to annualRecommendations:Continue PAP device, Benefitting and compliant with treatment. Cleaning Wipe off mask daily (baby wipe-no scent, or warm water) Clean mask, tubing, filter, and water chamber weekly in mild no scent dish soap and water. Hang to dry. If you have any sleepiness while driving you MUST avoid operating a vehicle or machinery. If you have difficulty with your equipment, or need to replace your mask or hoses, please contact your homecare agency. A weight change of 20 pounds or more may have an effect onyour equipment ; if you are experiencing problems please call for an appointment. If you have any further questions, please call the [facility] at [phone]. Functional Status Description No Information Available Mental Status Description No Information Available Referrals Description No Information Available
[2019-11-24 03:35] LABS: Albumin/Globulin Ratio 1.4 (1-3); BUN/Creatinine Ratio 16.5 (8-20); C Reactive Protein 57.95 mg/L (<8.01); Calcium 9.2 mg/dL (8.6-10.3); EGFR African American 95.2 (>60); EGFR Non-African American 78.7 (>60); Globulin 2.8 g/dL (2-4); Potassium 4.4 mmol/L (3.5-5.0); Total Bilirubin 0.8 mg/dL (0.2-1.0); Total Protein 6.8 g/dL (6.4-8.9)
[2019-11-24] MEDS ORDERED: Ketorolac INJ* 30 MG/ML 1 ML VIAL IV PUSH ONE (03:59)
[2019-11-24 04:05] LABS: Influenza A Molecular NEGATIVE (Negative); Influenza B Molecular NEGATIVE (Negative)
[2019-11-24 04:28] LABS: Urine Appearance Clear; Urine Bilirubin Negative (Negative); Urine Blood Negative (Negative); Urine Color Yellow; Urine Glucose Negative (Negative); Urine Ketones 1+ (Negative); Urine Nitrite Negative (Negative); Urine Protein Negative (Negative); Urine Specific Gravity 1.013 (1.010-1.030); Urine Urobilinogen Positive (Negative)
[2019-11-24 05:34] VITALS: BP 129/73
== END 2019-11-24 05:35 | disposition home or self-care (01) ==
LOC: ED 02:15
DX: R50.9 Fever, unspecified (principal); R05 Cough; R53.83 Other fatigue; J02.9 Acute pharyngitis, unspecified; R09.81 Nasal congestion; R51 Headache; R07.89 Other chest pain; E11.9 Type 2 diabetes mellitus without complications; I10 Essential (primary) hypertension; G47.30 Sleep apnea, unspecified; G40.909 Epilepsy, unspecified, not intractable, without status epilepticus
CPT/HCPCS: 36415; 71045; 80053; 81003; 83605; 85025; 86140; 96361; 96374; 99283; J1885; J2405